=== PATIENT | male | born 1955 | race Two or more races ===

== ENCOUNTER → 2016-06-11 | Outpatient (CLI) | payer MEDICARE ==
--- NOTE | 2016-06-11 12:45 | RAD ---
Indication persistent cough for 2 months. History of asthma. PA and lateral views of the chest were obtained and are compared to an examination November 15, 2005. The heart and pulmonary vessels appear normal. The lungs are clear. There is no pleural fluid or pneumothorax. Bony structures appear unremarkable. A significant change compared to the prior exam is not seen. IMPRESSION: No acute or focal process. No significant change
== END | disposition home or self-care (01) ==
LOC: RAD 11:44
PROVIDERS: ATTEND Internal Medicine
DX: R05 Cough (principal); J45.909 Unspecified asthma, uncomplicated
CPT/HCPCS: 71020